=== PATIENT | male | born 1935 | race Caucasian/White ===

== ENCOUNTER 2016-09-12 05:04 | Inpatient (IN) | payer BC ==
[2016-09-06 14:13] VITALS: BMI 31.7
[2016-09-12 12:39] LABS: INR 1.18 (0.82-1.09)
[2016-09-12] MEDS ORDERED: CEFAZOLIN 2 GM/D5W 50 ML IVPB ONE (13:23)
[2016-09-12] MEDS ORDERED: LIDOCAINE HCL 2% (20ML MULTI-DOSE VIAL) NR ONE (13:26)
[2016-09-12] MEDS ORDERED: PROPOFOL 20 ML ONE ×2 (13:26→15:50)
[2016-09-12] MEDS ORDERED: ROCURONIUM BROMIDE 50 MG/5 ML VIAL ONE (13:26)
[2016-09-12] MEDS ORDERED: MIDAZOLAM HCL 2 MG/2 ML SINGLE DOSE VIAL ONE ×3 (13:26)
--- NOTE | 2016-09-12 13:31 | HP ---
History & Physical Update - History History: No Change - Physical Physical: No Change - Assessment Assessment: No Change - Plan Plan: No Change
[2016-09-12] MEDS ORDERED: ceFAZolin SODIUM 1 GM VIAL ONE (14:04)
[2016-09-12] MEDS ORDERED: ceFAZolin SODIUM 1 GM VIAL IVPB ONE (14:05)
[2016-09-12] MEDS ORDERED: BUPIVACAINE HCL/PF 0.5% (5MG/ML) 10 ML VIAL ONE (14:08)
[2016-09-12] MEDS ORDERED: BUPIVACAINE HCL/PF 0.5% (5MG/ML) 10 ML VIAL IJ ONE (14:10)
[2016-09-12] MEDS ORDERED: LIDOCAINE HCL 1%, 10 MG/ML (50 mL VIAL) IJ ONE (14:10)
[2016-09-12] MEDS ORDERED: HEPARIN NA (PORCINE) 5,000 UNITS/ML 1ML VIAL ONE ×3 (14:30→15:22)
--- NOTE | 2016-09-12 16:37 | OP ---
Operative Note - Note: Operative Date: 09/12/16 Pre-Operative Diagnosis: Abdominal aortic aneurysm Operation: Percutaneous endovascular repair of Abdominal aortic aneurysm with modular stent graft - main body and 2 docking limbs. 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
[2016-09-12] MEDS ORDERED: ACETAMINOPHEN 1000 MG/100 ML VIAL (NON FORMULARY) IVPB PRN (16:42)
[2016-09-12] MEDS ORDERED: HYDROmorphone HCL CARPU-JECT 2 MG/1 ML DISP.SYRIN IVPB PRN (16:42)
[2016-09-12] MEDS ORDERED: DEXTROSE 5%-0.45% SALINE 1,000 ML IV SCH (16:45)
[2016-09-12 17:50] LABS: INR 1.27 (0.82-1.09)
[2016-09-12] MEDS ORDERED: PT OWN MED DRAWER 7, Y5N ONE (19:40)
--- NOTE | 2016-09-12 19:42 | SURG ---
Surgery Bottom Hoop Driver Note Bottom Hoop Driver: Mica Brooks PA-C Date of Service: 09/12/16 Diagnosis: Abdominal aortic aneurysm Procedure: Percutaneous endovascular repair of Abdominal aortic aneurysm with modular stent graft - main body and 2 docking limbs. Cannulation aorta x 2 I was present for the entirety of the operative procedure. For further detail, please refer to operative report. Visit type - Case Type Case Type: Scheduled Admission - Emergency Emergency Visit: No - New patient This patient is new to me today: Yes Date on this admission: 09/12/16 - Critical Care Critical Care patient: No
[2016-09-12] MEDS: FINASTERIDE 5 MG TABLET (FP) PO SCH (19:57)
[2016-09-12] MEDS ORDERED: ATORVASTATIN CA 40 MG TABLET (FP) PO SCH (22:00)
[2016-09-12] MEDS ORDERED: CEFAZOLIN 1 GM/D5W 50 ML IVPB SCH (22:00)
[2016-09-12] MEDS: CEFAZOLIN (PRE-DOCKED) 50 ML IVPB SCH (23:51)
[2016-09-13] MEDS: HYDROmorphone HCL CARPU-JECT 1 MG/1 ML DISP.SYRIN IVPB PRN ×2 (00:23→06:28)
[2016-09-13 06:11] LABS: MCH 29.8 pg (25.7-33.7); MCHC 32.8 g/dl (32.0-35.9); MEAN CELL VOLUME 90.9 fl (80-96); MEAN PLT VOLUME 9.3 fl (7.5-11.1); PLATELET COUNT 119 K/MM3 (134-434); RDW 14.8 % (11.9-15.9); WHITE BLOOD COUNT 8.1 K/mm3 (4.0-10.0)
[2016-09-13] MEDS: CEFAZOLIN (PRE-DOCKED) 50 ML IVPB SCH (06:23)
[2016-09-13 06:30] LABS: CALCIUM 8.6 mg/dL (8.5-10.1)
[2016-09-13 06:48] VITALS: TEMP 98.6
--- NOTE | 2016-09-13 07:19 | CONSULT ---
Consult - History of Present Illness History of Present Illness: 81 Y/O MALE WITH H/O HTN AND AAA S/P REPAIR NO CP OR SOB C/O LBP WHICH STARTED BEFORE SURGERY HE WAS CHANGING - Past Medical History Cardio/Vascular: Yes: AFIB, HTN, Hyperlipdemia, Other (AAA) Pulmonary: No: COPD Gastrointestinal: No: Constipation, GI Bleed - Past Surgical History Past Surgical History: Yes: AAA Repair - Alcohol/Substance Use Hx Alcohol Use: Yes (SOCIALLY) - Smoking History Smoking history: Never smoked Have you smoked in the past 12 months: No Home Medications - Allergies Allergies/Adverse Reactions: Allergies Allergy/AdvReac Type Severity Reaction Status Date / Time No Known Drug Allergies Allergy Verified 09/12/16 12:17 - Home Medications Home Medications: Ambulatory Orders Amlodipine Besylate 10 mg PO DAILY 09/06/16 Aspirin [Ecotrin] 81 mg PO DAILY 09/06/16 Atorvastatin Ca [Lipitor] 40 mg PO HS 09/06/16 Cholecalciferol (Vitamin D3) [Vitamin D3 -] 1,000 unit PO DAILY 09/06/16 Cyanocobalamin [Vitamin B12 -] 1,000 mcg PO DAILY 09/06/16 Finasteride 5 mg PO DAILY 09/06/16 Losartan Potassium [Cozaar] 100 mg PO DAILY 09/06/16 Kodak-3 Fatty Acids/Fish Oil [Fish Oil 1,000 mg Softgel] 1 each PO DAILY Warfarin Na [Coumadin] 5 mg PO DAILY@1800 09/06/16 Review of Systems - Review of Systems Cardiovascular: denies: Chest Pain Respiratory: denies: SOB Gastrointestinal: denies: Abdominal Pain Musculoskeletal: reports: Back Pain Neurological: reports: No Symptoms Physical Exam Vital Signs: Vital Signs Temperature 98.6 F 09/13/16 06:00 Pulse Rate 53 L 09/13/16 06:00 Respiratory Rate 14 09/13/16 06:00 Blood Pressure 122/81 09/13/16 06:00 O2 Sat by Pulse Oximetry (%) 98 09/12/16 19:25 Cardiovascular: Yes: Bradycardia, Murmur, S1, S2 Respiratory: Yes: Regular, CTA Bilaterally Gastrointestinal: Yes: Normal Bowel Sounds, Soft Edema: No Wound/Incision: Yes: Other (DRESSING OVER GROIN) Neurological: Yes: Alert, Oriented Labs: CBC, BMP 09/13/16 05:15 09/13/16 05:15 Problem List - Problems (1) S/P AAA repair Assessment/Plan: Operative Date: 09/12/16 Pre-Operative Diagnosis: Abdominal aortic aneurysm Operation: Percutaneous endovascular repair of Abdominal aortic aneurysm with modular stent graft - main body and 2 docking limbs. 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
--- NOTE | 2016-09-13 07:38 | PN ---
Progress Note (short form) - Note Progress Note: POD #1 Alert. Resting in position of comfort. C/o low back pain that started yesterday morning prior to surgery. Pain managed well via PRN meds. Denies n/v/f/c, CP, SOB or palpitations. Last Vital Signs Temp Pulse Resp BP Pulse Ox 98.6 F 53 L 14 122/81 98 09/13/16 06:00 09/13/16 06:00 09/13/16 06:00 09/13/16 06:00 09/12/16 19:25 CBC, BMP 09/13/16 05:15 09/13/16 05:15 PE Gen: alert. nad. Abd: soft. nt. nd. no palpable masses. Groin: (L) --> stab incision intact. No hematoma. (R) --> stab incison intact. Minimla oozing overnight. Quelled with pressure dressing. No hematoma. LE: TEDs/SCDs b/l. feet warm b/l. No calf tenderness/swelling. pedal pulses b/l Problem List - Problems (1) S/P AAA repair Assessment/Plan: POD #1 s/p Percutaneous endovascular repair of abdominal aortic aneurysm with modular stent graft - main body and 2 docking limbs. Cannulation aorta x 2 Can resume his coumadin Advance diet as tolerated DVT PPX Downgrade to floor at ICU discretion Above plan discussed with Dr. Farley and agrees Code(s): Z98.890 - OTHER SPECIFIED POSTPROCEDURAL STATES Z86.79 - PERSONAL HISTORY OF OTHER DISEASES OF THE CIRCULATORY SYSTEM
--- NOTE | 2016-09-13 08:47 | PN ---
Progress Note, Physician Chief Complaint: Pt pain controlled, no GA complaints. - Current Medication List Current Medications: Active Medications Acetaminophen (Ofirmev Injection -) 1,000 mg IVPB Q6H PRN PRN Reason: PAIN LEVEL 1-5 Amlodipine Besylate (Norvasc -) 10 mg PO DAILY [facility] Aspirin (Ecotrin -) 81 mg PO DAILY [facility] Atorvastatin Calcium (Lipitor -) 40 mg PO HS [facility] Last Admin: 09/12/16 21:04 Dose: 40 mg Cholecalciferol (Vitamin D3 -) 1,000 unit PO DAILY [facility] Cyanocobalamin (Vitamin B12 -) 1,000 mcg PO DAILY [facility] Enoxaparin Sodium (Lovenox -) 40 mg SQ DAILY [facility] Finasteride (Proscar -) 5 mg PO DAILY [facility] Last Admin: 09/12/16 19:57 Dose: Not Given Hydromorphone HCl (Dilaudid Injection -) 1 mg IVPB Q3H PRN PRN Reason: PAIN LEVEL 1-5 Last Admin: 09/13/16 06:28 Dose: 1 mg Hydromorphone HCl (Dilaudid Injection -) 2 mg IVPB Q3H PRN PRN Reason: PAIN LEVEL 6-10 Dextrose/Sodium Chloride (D5-1/2ns -) 1,000 mls @ 75 mls/hr IV ASDIR [facility] Last Admin: 09/12/16 18:00 Dose: 0 mls Lidocaine (Lidoderm Patch -) 1 patch TP DAILY [facility] Losartan Potassium (Cozaar -) 100 mg PO DAILY [facility] Cilae-9-Ktch Ethyl Esters (Lovaza -) 1 gm PO DAILY [facility] Warfarin Sodium (Coumadin -) 5 mg PO DAILY@1800 [facility] - Objective Vital Signs: Vital Signs Temperature 98.6 F 09/13/16 06:00 Pulse Rate 53 L 09/13/16 06:00 Respiratory Rate 14 09/13/16 06:00 Blood Pressure 122/81 09/13/16 06:00 O2 Sat by Pulse Oximetry (%) 97 09/13/16 07:42 Constitutional: Yes: Well Nourished, No Distress, Calm Musculoskeletal: Yes: Back Pain Neurological: Yes: WNL, Alert, Oriented ...Motor Strength: WNL Labs: CBC, BMP 09/13/16 05:15 09/13/16 05:15 INR, PTT INR 1.27 (0.82-1.09) H 09/12/16 16:50 Assessment/Plan POD#1 s/p Endovascular AAA under GA/TIVA. Doing well. D/C from anesthesia care.
--- NOTE | 2016-09-13 09:20 | CON.CARD ---
Consult Consult Specialty:: Cardiology Referred by:: Dr. Antunez Reason for Consultation:: Afib - History of Present Illness Chief Complaint: SP AAA repair History of Present Illness: 81 M HTN, Afib on coumadin, chronic Low back pain and AAA. He is post elective endovascular AAA repair yesterday. There is no reported history of heart failure or CAD. Currently, without dyspnea or chest pain. He has low bback pain preceeding his operation. On telemetry, Afib has been rate controlled. He is not on AV dalia blockers. - History Source History Provided By: Patient Limitations to Obtaining History: No Limitations - Past Medical History Cardio/Vascular: Yes: AFIB, HTN, Hyperlipdemia, Other (AAA) Pulmonary: No: COPD Gastrointestinal: No: Constipation, GI Bleed - Past Surgical History Past Surgical History: Yes: AAA Repair - Alcohol/Substance Use Hx Alcohol Use: Yes (SOCIALLY) - Smoking History Smoking history: Never smoked Have you smoked in the past 12 months: No Home Medications - Allergies Allergies/Adverse Reactions: Allergies Allergy/AdvReac Type Severity Reaction Status Date / Time No Known Drug Allergies Allergy Verified 09/12/16 12:17 - Home Medications Home Medications: Ambulatory Orders Amlodipine Besylate 10 mg PO DAILY 09/06/16 Aspirin [Ecotrin] 81 mg PO DAILY 09/06/16 Atorvastatin Ca [Lipitor] 40 mg PO HS 09/06/16 Cholecalciferol (Vitamin D3) [Vitamin D3 -] 1,000 unit PO DAILY 09/06/16 Cyanocobalamin [Vitamin B12 -] 1,000 mcg PO DAILY 09/06/16 Finasteride 5 mg PO DAILY 09/06/16 Losartan Potassium [Cozaar] 100 mg PO DAILY 09/06/16 Chauncey-3 Fatty Acids/Fish Oil [Fish Oil 1,000 mg Softgel] 1 each PO DAILY Warfarin Na [Coumadin] 5 mg PO DAILY@1800 09/06/16 Family Disease History - Family Disease History Family History: Denies Review of Systems - Review of Systems Constitutional: reports: No Symptoms Eyes: reports: No Symptoms HENT: reports: No Symptoms Neck: reports: No Symptoms Cardiovascular: reports: No Symptoms Respiratory: reports: No Symptoms Gastrointestinal: reports: No Symptoms Genitourinary: reports: No Symptoms Musculoskeletal: reports: Back Pain Neurological: reports: No Symptoms Endocrine: reports: No Symptoms - Risk Factors Known Risk Factors: Yes: Age, Gender, Hypertension Vital Signs: Vital Signs Temperature 98.6 F 09/13/16 06:00 Pulse Rate 53 L 09/13/16 06:00 Respiratory Rate 14 09/13/16 08:00 Blood Pressure 133/80 09/13/16 08:00 O2 Sat by Pulse Oximetry (%) 97 09/13/16 07:42 Constitutional: Yes: Well Nourished, No Distress Eyes: Yes: WNL HENT: Yes: WNL Neck: Yes: WNL Respiratory: Yes: Regular, CTA Bilaterally Gastrointestinal: Yes: Normal Bowel Sounds, Soft Cardiovascular: Yes: Pulse Irregular JVD: No Carotid Bruit: No PMI: Non-Displaced Heart Sounds: Yes: S1, S2 Musculoskeletal: Yes: WNL Extremities: Yes: WNL Edema: No Peripheral Pulses WNL: Yes - Other Data Labs, Other Data: CBC, BMP 09/13/16 05:15 09/13/16 05:15 INR, PTT INR 1.27 (0.82-1.09) H 09/12/16 16:50 Problem List - Problems (1) Atrial fibrillation Assessment/Plan: HR controlled persistent/chronic Afib. Has not required AV dalia agents for control. Mild bradycardia without pauses is noted. Continue telemetry. Resume Coumadin. Avoid Beta blockers or digoxin. Can continue with Amlodipine. Will follow. Code(s): I48.91 - UNSPECIFIED ATRIAL FIBRILLATION Qualifiers: Atrial fibrillation type: chronic Qualified Code(s): I48.2 - Chronic atrial fibrillation (2) HTN (hypertension) Assessment/Plan: Adequately controlled. Code(s): I10 - ESSENTIAL (PRIMARY) HYPERTENSION
[2016-09-13] MEDS ORDERED: PT OWN MED DRAWER 7, Y5N ONE (09:53)
[2016-09-13] MEDS ORDERED: ASPIRIN COATED 81 MG TABLET.EC PO SCH (10:00)
[2016-09-13] MEDS ORDERED: LOSARTAN POTASSIUM 50 MG TABLET (FP) PO SCH (10:00)
[2016-09-13] MEDS ORDERED: ENOXAPARIN NA (PORCINE) 40 MG/0.4 ML DISP.SYRIN SQ SCH (10:00)
[2016-09-13] MEDS ORDERED: amLODIPine BESYLATE 10 MG TABLET (FP) PO SCH (10:00)
[2016-09-13] MEDS ORDERED: OMEGA-3 ACID ETHYL ESTERS (FATTY-ACIDS) 1 GM CAPSULE (FP) PO SCH (10:00)
[2016-09-13] MEDS ORDERED: FINASTERIDE 5 MG TABLET (FP) PO SCH (10:00)
[2016-09-13] MEDS ORDERED: CHOLECALCIFEROL (VITAMIN D3) 1,000 UNIT TABLET (FP) PO SCH (10:00)
[2016-09-13] MEDS ORDERED: CYANOCOBALAMIN 1,000 MCG TABLET (FP) PO SCH (10:00)
[2016-09-13] MEDS ORDERED: LIDOCAINE 5% TOPICAL PATCH TP SCH ×2 (10:00)
[2016-09-13] MEDS: FINASTERIDE 5 MG TABLET (FP) PO SCH (10:02)
[2016-09-13 12:51] VITALS: BP 119/83; PULSE 76
--- NOTE | 2016-09-13 13:28 | EKG ---
Test Reason : Blood Pressure : / mmHG Vent. Rate : 054 BPM Atrial Rate : 062 BPM P-R Int : 000 ms QRS Dur : 104 ms QT Int : 464 ms P-R-T Axes : 000 -25 -19 degrees QTc Int : 440 ms ATRIAL FIBRILLATION WITH SLOW VENTRICULAR RESPONSE INFERIOR INFARCT , AGE UNDETERMINED ABNORMAL ECG WHEN COMPARED WITH ECG OF 20-APR-2011 17:56, ATRIAL FIBRILLATION HAS REPLACED SINUS RHYTHM T WAVE AMPLITUDE HAS DECREASED IN ANTERIOR LEADS Confirmed by GENARO KIRKPATRICK MD ([id number]) on 09/13/2016 1:28:19 PM Referred By: Confirmed By:GENARO KIRKPATRICK MD
[2016-09-13] MEDS ORDERED: WARFARIN NA 5 MG TABLET (UD) PO SCH (18:00)
--- NOTE | 2016-09-15 11:38 | OP ---
DATE OF OPERATION: 09/12/2016 SURGEON: Ken Carney MD [employer] WAFER BREAKER: JUAN J Limon PROCEDURE: Percutaneous endovascular repair of abdominal aortic aneurysm with modular stent graft. PREOPERATIVE DIAGNOSIS: Abdominal aortic aneurysm. POSTOPERATIVE DIAGNOSIS: Abdominal aortic aneurysm. ANESTHESIA: Fractional. ANESTHESIOLOGIST: Scott Diez MD OPERATIVE FINDINGS: There was an infrarenal abdominal aortic aneurysm with a maximum diameter of approximately 6 cm. Both common iliac arteries were ectatic, but without aneurysm. OPERATIVE PROCEDURE: Following routine patient identification, intravenous sedation was established. Both groins and abdomen were prepped with ChloraPrep. A time-out was performed. Using real-time duplex imaging, the right common femoral artery was identified above the bifurcation. It was cannulated with a micropuncture needle, and a wire was passed proximally. The needle was exchanged for a 5-[place] catheter. Then, a wire was passed up into the abdominal aorta, and the catheter exchanged for a 6-[place] sheath. The Perclose device was then placed over the wire at the 10 o'clock position in the artery, removed, and a 2nd Perclose placed at the 2 o'clock position. An 8-[place] sheath was then placed back into the vessel. The left common femoral artery was accessed in a similar fashion, and 2 Perclose devices placed, as well. A wire and catheter were then advanced through the left femoral sheath into the abdominal aorta. A pigtail marking catheter was advanced over the wire and positioned at the level of the renal arteries. Digital angiography was then performed to identify the renal vessels and measure the length of the aneurysm. A wire and catheter were introduced through the right femoral sheath and advanced up to the aortic arch. A Lunderquist wire was then placed through the catheter, and the catheter was removed. The Cook Zenith main body with a 30-mm proximal neck was prepped and passed over the wire. It was deployed at the level of the renal arteries after obtaining magnified angiograms. The main body was then opened down until the contralateral gate was exposed. A wire was introduced through the left femoral artery, and with Berenstein catheter, attempt made to cannulate the contralateral gate. This proved to be difficult. A 12-[place] sheath was exchanged over the wire to give support up into the abdominal aorta, and additional attempts to cannulate the gate were done, but not successful. Therefore, the remaining main portion of the main body was deployed. An angiogram was done through the sheath and the right femoral to romain the anterior iliac artery, and then a right iliac limb was passed over the wire and deployed down to the iliac bifurcation. An Omni Flush catheter was advanced over the wire into the graft main body, and a wire advanced up and over the bifurcation of the stent graft and down into the contralateral limb. A snare device was passed up through the left groin and used to snare the wire and pull it out through the left femoral sheath. Catheter was then advanced back up over this wire into the main body, and then a stiff wire was advanced through the catheter up into the thoracic aorta. The left iliac artery was with injection through the left iliac sheath, and then, a left iliac limb was advanced and deployed without complication down to the iliac bifurcation. All portions of the stent graft were then dilated with a Coda Balloon, and completion angiography performed which revealed good flow through the stent graft with no evidence of type1 or type 2 endoleaks. The catheters were removed. The right femoral sheath was then removed while tightening the Perclose devices over the wire. With adequate hemostasis, the wire was removed, and the Perclose devices were tightened again and sealed. The left femoral sheath was removed, and the Perclose devices tightened without complication. Pressure was applied in both groins until bleeding ceased, and then Dermabond glue was applied over the incisions. Patient was then transported to the recovery area in stable condition. KEN CARNEY M.D. [id number]
== END 2016-09-13 13:07 | disposition home or self-care (01) | DRG 269 ==
LOC: JSAMEDAYSX 05:04 → JICU 18:06
PROVIDERS: ADMIT Surgery; ATTEND Surgery
PROC: B4001ZZ Plain Radiography of Abdominal Aorta using Low Osmolar Contrast (ICD-10-PCS; 2016-09-12)
PROC: 04V03EZ Restriction of Abdominal Aorta with Branched or Fenestrated Intraluminal Device, One or Two Arteries, Percutaneous Approach (ICD-10-PCS; principal; 2016-09-12 13:30)
DX: I71.4 Abdominal aortic aneurysm, without rupture (principal); I10 Essential (primary) hypertension; E78.5 Hyperlipidemia, unspecified; I48.91 Unspecified atrial fibrillation; Z79.01 Long term (current) use of anticoagulants; M50.30 Other cervical disc degeneration, unspecified cervical region
CPT/HCPCS: 36415; 76000-TC; 80048; 85027; 85610; 86850; 86900; 86901; 93005; 93010; 94760; J1644